=== PATIENT | male | born 1935 | race Caucasian/White ===

== ENCOUNTER 2018-03-28 05:42 | Day surgery (SDC) | payer MEDICARE ==
[2018-03-26 11:55] LABS: BASOPHILS % (AUTO) 0.6 % (0.0-5.0); EOSINOPHILS % (AUTO) 1.5 % (0.0-8.0); HEMATOCRIT 40.4 % (42-54); MEAN CORPUSCULAR HGB CONC 33.7 g/dL (32.0-36.0); MEAN CORPUSCULAR VOLUME 89.1 fL (79-99); MONOCYTES % (AUTO) 6.5 % (3.0-13.0); NEUTROPHILS % (AUTO) 31.4 % (40.0-77.0); PLATELET COUNT (AUTO) 243 K/uL (130-400); RED BLOOD CELL COUNT(AUTO) 4.54 MIL/uL (4.50-6.20); RED CELL DISTRIBUTION WIDTH 14.1 % (11.0-15.5); WHITE BLOOD COUNT (AUTO) 19.5 K/uL (4.8-10.8)
[2018-03-26 11:59] VITALS: BP 150/67
[2018-03-26 12:02] LABS: CREATININE 0.9 mg/dL (0.5-1.5); POTASSIUM 4.7 mmol/L (3.5-5.1)
[2018-03-26 12:13] LABS: INR 1.07 (0.85-1.15); PARTIAL THROMBOPLASTIN TIME 28.4 SEC (26.3-35.5); PROTHROMBIN TIME 11.2 SEC (9.6-11.6)
[2018-03-26 12:27] LABS: EOSINOPHILS % (MANUAL) 1 % (1-6); LYMPHOCYTES % (MANUAL) 38 % (22-44); MAN.DIFF COMMENT-IMPRESSION MANUAL DIFFERENTIAL; MONOCYTES % (MANUAL) 10 % (2-9); PLATELET MORPHOLOGY COMMENT ADEQUATE; REACTIVE LYMPHOCYTES 29 % (0-0); SEGMENTED NEUTROPHILS % 22 % (40-70)
[2018-03-28] VITALS (8 sets, daily range): BP systolic 89–144; BP diastolic 41–68
[~2018-03-28] VITALS: Ht 182.9 cm; Wt 115.2 kg
[~2018-03-28 05:42] MED LIST: AMLO5TAB2 PO; ASCO10007 PO; ATOR10TA69 PO; CLOP75TA14 PO; HYDR-4068 PO; HYDR12.54 PO; LEVO50TA4 PO; LOSA100T29 PO; MULT-1077 PO
[2018-03-28] MEDS ORDERED: LIDOCAINE HCL 2% 20ML ONE (07:30)
[2018-03-28] MEDS ORDERED: CEFAZOLIN SODIUM 1 GM VIAL ONE (07:30)
[2018-03-28] MEDS ORDERED: LIDOCAINE HCL 1% MDV 50ML VIAL ONE (07:30)
[2018-03-28] MEDS ORDERED: BUPIVACAINE/PF 0.25% 30ML VIAL IJ ONE (07:30)
[2018-03-28] MEDS ORDERED: HEPARIN SODIUM 1000UNIT/ML 10ML VIAL ONE (07:30)
[2018-03-28] MEDS ORDERED: MIDAZOLAM HCL 1 MG/ML 2ML VIAL ONE ×2 (07:44→08:06)
[2018-03-28] MEDS ORDERED: MEPERIDINE-PF 25 MG/ML SYG ONE ×2 (07:44→08:06)
[2018-03-28] MEDS ORDERED: SODIUM CHLORIDE 0.9% 1000ML 1,000 ML IV ONE (07:48)
== END 2018-03-28 11:58 | disposition home or self-care (01) ==
LOC: DAH 05:42
PROVIDERS: ATTEND Internal Medicine Cardiovascular Disease
DX: I44.1 Atrioventricular block, second degree (principal); I49.5 Sick sinus syndrome; I10 Essential (primary) hypertension; Z79.899 Other long term (current) drug therapy; Z86.73 Personal history of transient ischemic attack (TIA), and cerebral infarction without residual deficits; E78.5 Hyperlipidemia, unspecified; C91.10 Chronic lymphocytic leukemia of B-cell type not having achieved remission; E03.9 Hypothyroidism, unspecified; G89.29 Other chronic pain; I45.9 Conduction disorder, unspecified; Z68.35 Body mass index [BMI] 35.0-35.9, adult
CPT/HCPCS: 36415; 80048; 85025; 85610; 85730; 93620; 99152; A4606; C1730 ×3; C1894 ×3; J1644; J2175 ×2; J2250 ×2; J3490; J7030; 99153; 99156; 99157; J0690